=== PATIENT | male | born 1990 | race Caucasian/White ===

== ENCOUNTER 2017-04-16 09:02 | Emergency (ER) | payer SELFPAY ==
[~2017-04-16] VITALS: Ht 162.6 cm; Wt 57.0 kg
[2017-04-16 09:04] VITALS: Ht 162.6 cm; Wt 57.0 kg
[2017-04-16] MEDS ORDERED: KETOROLAC 30 MG INJ IM STA (09:39)
--- NOTE | 2017-04-16 10:39 | ERD ---
ER Documentation Chief Complaint Date/Time DATE: 04/16/17 TIME: 10:35 Chief Complaint back and neck pain/injury HPI Patient is a 26-year-old Estonian-speaking male who presents to the ED with neck and back pain since Thursday. He states that he was on a pile of dirt unsure of height and fell backwards. Denies hitting his head, loss of consciousness, and gout. At this moment denies headache, dizziness, blurry vision does complain of neck pain and upper back pain. Denies bowel or bladder incontinence. Denies weakness or new falls or trauma. He is able to walk without difficulty. Able to move his neck but limited in lateral rotation. No other complaints. ROS All systems reviewed and are negative except as per history of present illness. Medications Home Meds Active Scripts Naproxen* (Naprosyn*) 500 Mg Tablet, 500 MG PO BID Y for PAIN AND/OR INFLAMMATION, #30 TAB Prov:POLY SARABIA PA-C 04/16/17 Allergies Allergies: Coded Allergies: No Known Allergy (Unverified , 04/16/17) PMhx/Soc History of Surgery: No Anesthesia Reaction: No Hx Neurological Disorder: No Hx Respiratory Disorders: No Hx Cardiac Disorders: No Hx Psychiatric Problems: No Hx Miscellaneous Medical Probl: No Hx Alcohol Use: No Hx Substance Use: No Hx Tobacco Use: No Smoking Status: Never smoker Physical Exam Vitals Vital Signs Date Time Temp Pulse Resp B/P Pulse Ox O2 Delivery O2 Flow Rate FiO2 04/16/17 09:04 98.6 58 18 109/54 100 Physical Exam GENERAL: Well-developed, well-nourished male. Appears in no acute distress. HEAD: Normocephalic, atraumatic. EYES: Pupils are equally reactive bilaterally. EOMs grossly intact. No conjunctival erythema. ENT: Moist mucous membranes. No uvula deviation. No kissing tonsils. No exudates. limited rom in lateral rotation. flexion and extension within normal limits. NECK: Supple. No lymphadenopathy or thyromegaly. No meningismus. negative kernig. negative brudinski. LUNG: Clear to auscultation bilaterally. No rhonchi, wheezing, rales or coarse breath sounds. HEART: Regular rate and rhythm. No murmurs, rubs or gallops. BACK: tenderness to area upper thoracic spine. negative straight leg test. no stepoffs or deformities. no open wounds or laceration. no erythema, swelling. Extremities: Equal pulses bilaterally. No peripheral clubbing, cyanosis or edema. No unilateral leg swelling. NEUROLOGIC: Alert and oriented. Moving all four extremities. 5/5 strength in all extremities. Normal speech. Steady gait. SKIN: Normal color. Warm and dry. No rashes or lesions. Capillary refill < 2 seconds Results 24 hrs Current Medications Medications (Trade) Dose Ordered Sig/Eyal Route PRN Reason Start Time Stop Time Status Last Admin Dose Admin Ketorolac Tromethamine (Toradol) 30 mg ONCE STAT IM 04/16/17 09:39 04/16/17 09:41 DC 04/16/17 09:46 Procedures/MDM ER COURSE: I kept the patient and/or family informed of laboratory and diagnostic imaging results throughout the emergency room course. MEDICAL DECISION MAKING: This is a 26-year-old male who presents with back pain 2 days. Vital signs were reviewed. Patient is afebrile. Patient is not hypoxic. Is not toxic or ill -appearing. Patient was given Toradol 30 mg IM. Tolerated well with no adverse reaction. CT as read by radiologist is unremarkable for fracture or dislocation. Patient has likely muscle strain versus sprain. Low suspicion for dislocation, fracture, epidural abscess, herniation, osteomyelitis, meningitis, neurological deficit. Low suspicion for cauda equine syndrome, spinal epidural hematoma, spinal epidural abscess, osteomyelitis, fracture, aortic dissection, AAA, pyelonephritis, nephrolithiasis, septic stone, obstructed stone. DISCHARGE: At this time, patient is stable for discharge and outpatient management with no new complaints during the ER course. Patient was sent home with person and a copy of imaging report. Patient will be discharged home with instructions to recheck for new or worsening symptoms such as fever, nausea, weakness, LOC and to follow up with primary care in the next 1-2 days. Patient was advised to return to the ER for any new or worsening symptoms. Plan was discussed and patient and/or family understands and agrees. Home instructions were given. Departure Diagnosis: Primary Impression: Neck pain Additional Impression: Back pain Back pain location: thoracic back pain Chronicity: acute Back pain laterality: midline Qualified Code: M54.6 - Acute midline thoracic back pain Condition: Stable POLY SARABIA PA-C Apr 16, 2017 10:39 Condition: Stable POLY SARABIA PA-C Apr 16, 2017 10:39
--- NOTE | 2017-04-16 10:49 | RADRPT ---
PROCEDURE: CT cervical spine without contrast CLINICAL INDICATION: Trauma. Neck pain. TECHNIQUE: CT scan of the cervical spine [facility] No IV contrast was administered. Coronal and sagittal reformatted images were obtained from th e axial source images. Images were reviewed on a high-resolution PACS workstation. One or more the f ollowing does reduction techniques were utilized: Automated exposure control, adjustment of the mA/ or kV according to patient's size, or use of iterative reconstruction technique. Exam CTDI = 22.1 mG y and the DLP = 426.64 mGy-cm. COMPARISON: None available. FINDINGS: There is straightening of the alignment of the cervical spine with loss of the normal cervical lordo sis. Alignment remains intact. No acute fracture or dislocation is seen. The vertebral body heigh ts and disk spaces are preserved. No significant spinal canal or foraminal stenosis is noted. No ma ss, hematoma, or other soft tissue abnormality is seen. IMPRESSION: 1. Straightening of normal cervical lordosis. 2. No acute fracture or traumatic subluxation. RPTAT: JJ .Cristian Dennison MD, MD Date Time Electronically viewed and signed by .Cristian Dennison MD, MD on 04/16/2017 10:48 .N/
--- NOTE | 2017-04-16 10:52 | RADRPT ---
PROCEDURE: CT thoracic spine without contrast CLINICAL INDICATION: Trauma. Back pain. TECHNIQUE: CT scan of the thoracic spine was performed [facility] No IV contrast was administered. Coronal and sagittal reformatted images were obtained from th e axial source images. Images were reviewed on a high-resolution PACS workstation. One or more the following does reduction techniques were utilized: Automated exposure control, adjustment of the mA/ or kV according to patient's size, or use of iterative reconstruction technique. Exam CTDI = 7.81 mGy and the DLP = 286.47 mGy-cm. COMPARISON: None available FINDINGS: There is preservation of the normal thoracic kyphosis. Alignment remains intact. No acute fracture or dislocation is seen. The vertebral body heights are preserved. There are multilevel mild degenerative changes of thoracic spine with decreased disk spaces and oste ophytosis. The paraspinous soft tissues are unremarkable. No mass, hematoma, or other soft tissue abnormality is seen. IMPRESSION: 1. No acute thoracic spine fracture or subluxation. 2. Multilevel mild discogenic disease. RPTAT: JJ .Cristian Dennison MD, MD Date Time Electronically viewed and signed by .Cristian Dennison MD, MD on 04/16/2017 10:52 .N/
[2017-04-16] MEDS ORDERED: NAPR-260 PO (11:13)
== END 2017-04-16 11:40 | disposition home or self-care (01) ==
LOC: FTE 09:02
DX: M54.2 Cervicalgia (principal); M54.6 Pain in thoracic spine
CPT/HCPCS: 72125; 72128; 96372; 99285; J1885